=== PATIENT | female | born 1950 | race Caucasian/White ===

== ENCOUNTER → 2016-09-16 | Outpatient (CLI) | payer OTHER ==
[2016-09-16 12:51] LABS: BLOOD UREA NITROGEN 20 mg/dL (7-18)
[2016-09-16 12:56] LABS: ASPARTATE AMINO TRANSFERASE 22 U/L (15-37)
== END | disposition home or self-care (01) ==
LOC: CFH 08:43
PROVIDERS: ATTEND Internal Medicine Cardiovascular Disease
DX: E78.5 Hyperlipidemia, unspecified (principal); I10 Essential (primary) hypertension
CPT/HCPCS: 36415; 80053; 80061

== ENCOUNTER → 2016-09-18 | Outpatient (CLI) | payer OTHER | END | disposition home or self-care (01) | LOC: CFH 08:02 | PROVIDERS: ATTEND Internal Medicine Cardiovascular Disease | DX: I34.1 Nonrheumatic mitral (valve) prolapse (principal) | CPT/HCPCS: 93306 ==

== ENCOUNTER → 2017-01-04 | Outpatient (CLI) | payer OTHER ==
[2017-01-04 07:40] LABS: HEMOGLOBIN 15.1 g/dL (11.7-16.4); WHITE BLOOD COUNT 4.8 x10^3/uL (3.4-10)
[2017-01-04 07:52] LABS: ASPARTATE AMINO TRANSFERASE 22 U/L (15-37); BLOOD UREA NITROGEN 14 mg/dL (7-18)
== END | disposition home or self-care (01) ==
LOC: LAB 07:12
PROVIDERS: ATTEND Internal Medicine Cardiovascular Disease
DX: I10 Essential (primary) hypertension (principal); E78.00 Pure hypercholesterolemia, unspecified
CPT/HCPCS: 36415; 80053; 80061; 82306; 84436; 84443; 84480; 84481; 85025

== ENCOUNTER → 2017-09-23 | Outpatient (CLI) | payer OTHER, MEDICARE ==
[2017-09-23 12:55] LABS: BASOPHILS # (AUTO) 0.02 x10^3/uL (0-0.1); BASOPHILS % (AUTO) 0 % (0-1); EOSINOPHILS # (AUTO) 0.33 x10^3/uL (0-0.4); EOSINOPHILS % (AUTO) 6 % (1-7); LYMPHOCYTES % (AUTO) 35 % (22-44); MD NO; MEAN CORPUSCULAR HGB CONC 34.5 g/dL (32.4-35.8); MEAN CORPUSCULAR VOLUME 92.9 fL (80-100); MEAN PLATELET VOLUME 8.4 fL (7.4-10.4); MONOCYTES # (AUTO) 0.57 x10^3/uL (0.2-0.8); MONOCYTES % (AUTO) 11 % (2-9); NEUTROPHILS % (AUTO) 48 % (42-75); PLATELET COUNT 284 x10^3/uL (130-400); RED BLOOD COUNT 4.55 x10^6/uL (3.82-5.3); RED CELL DISTRIBUTION WIDTH 12.9 % (9.6-15.2)
[2017-09-23 13:19] LABS: ALBUMIN 3.7 g/dL (3.4-5.0); ANION GAP 6 mmol/L (5-15); CALCIUM 9.2 mg/dL (8.5-10.1); CHLORIDE 105 mmol/L (98-107)
[2017-09-23 13:24] LABS: ALANINE AMINOTRANSFERASE 25 U/L (12-78); ALKALINE PHOSPHATASE 77 U/L (45-117); BILIRUBIN,TOTAL 0.7 mg/dL (0.2-1.0); CHOL/HDL RATIO 3.7; CHOLESTEROL, TOTAL 169 mg/dL (140-239); CREATININE 0.93 mg/dL (0.55-1.02); HDL CHOL % 27 % (28-40); HDL CHOLESTEROL (DIRECT) 46 mg/dL (40-60); LDL CHOLESTEROL,CALCULATED 107 mg/dL (54-169); LDL/HDL RATIO 2.3 (0.5-3.0); TOTAL PROTEIN 7.3 g/dL (6.4-8.2); TRIGLYCERIDES 79 mg/dL (50-200); VLDL CHOLESTEROL 16 mg/dL (0-25)
== END | disposition home or self-care (01) ==
LOC: CFH 07:13
PROVIDERS: ATTEND Family Medicine
DX: Z12.31 Encounter for screening mammogram for malignant neoplasm of breast (principal); I10 Essential (primary) hypertension; E78.00 Pure hypercholesterolemia, unspecified
CPT/HCPCS: 36415; 80053; 80061; 85025; 77067

== ENCOUNTER → 2017-10-23 | Outpatient (CLI) | payer OTHER, MEDICARE | END | disposition home or self-care (01) | LOC: CFH 10:28 | PROVIDERS: ATTEND Internal Medicine Cardiovascular Disease | DX: I34.1 Nonrheumatic mitral (valve) prolapse (principal); I10 Essential (primary) hypertension; E11.9 Type 2 diabetes mellitus without complications | CPT/HCPCS: 78452; 93017; 93306; A9502 ==

== ENCOUNTER → 2018-03-20 | Outpatient (CLI) | payer MEDICARE ==
[2018-03-20 12:47] LABS: CHLORIDE 106 mmol/L (98-107)
[2018-03-20 12:53] LABS: ALANINE AMINOTRANSFERASE 26 U/L (12-78); ALBUMIN 3.5 g/dL (3.4-5.0); ALKALINE PHOSPHATASE 87 U/L (45-117); BILIRUBIN,TOTAL 0.4 mg/dL (0.2-1.0); CALCIUM 8.7 mg/dL (8.5-10.1); CHOL/HDL RATIO 3.5; CHOLESTEROL, TOTAL 192 mg/dL (140-239); CREATININE 0.87 mg/dL (0.55-1.02); HDL CHOL % 29 % (28-40); HDL CHOLESTEROL (DIRECT) 55 mg/dL (40-60); LDL CHOLESTEROL,CALCULATED 126 mg/dL (54-169); LDL/HDL RATIO 2.3 (0.5-3.0); TOTAL PROTEIN 7.1 g/dL (6.4-8.2); TRIGLYCERIDES 55 mg/dL (50-200); VLDL CHOLESTEROL 11 mg/dL (0-25)
[2018-03-20 13:20] LABS: ANION GAP 5 mmol/L (5-15)
== END | disposition home or self-care (01) ==
LOC: CFH 07:07
PROVIDERS: ATTEND Internal Medicine Cardiovascular Disease
DX: I10 Essential (primary) hypertension (principal)
CPT/HCPCS: 36415; 80053; 80061

== ENCOUNTER → 2018-03-24 | Outpatient (CLI) | payer MEDICARE ==
[2018-03-24 12:37] LABS: BASOPHILS # (AUTO) 0.04 x10^3/uL (0-0.1); BASOPHILS % (AUTO) 1 % (0-1); EOSINOPHILS # (AUTO) 0.59 x10^3/uL (0-0.4); EOSINOPHILS % (AUTO) 8 % (1-7); LYMPHOCYTES # (AUTO) 3.01 x10^3/uL (1-3.4); LYMPHOCYTES % (AUTO) 39 % (22-44); MD NO; MEAN CORPUSCULAR HEMOGLOBIN 32.1 pg (27.0-34.8); MEAN CORPUSCULAR HGB CONC 33.9 g/dL (32.4-35.8); MEAN CORPUSCULAR VOLUME 94.7 fL (80-100); MEAN PLATELET VOLUME 9.4 fL (7.4-10.4); MONOCYTES # (AUTO) 0.58 x10^3/uL (0.2-0.8); MONOCYTES % (AUTO) 8 % (2-9); NEUTROPHILS # (AUTO) 3.43 x10^3/uL (1.8-6.8); NEUTROPHILS % (AUTO) 45 % (42-75); PLATELET COUNT 304 x10^3/uL (130-400); RED BLOOD COUNT 4.68 x10^6/uL (3.82-5.3); RED CELL DISTRIBUTION WIDTH 13.4 % (9.6-15.2)
== END | disposition home or self-care (01) ==
LOC: CFH 07:29
PROVIDERS: ATTEND Internal Medicine Cardiovascular Disease
DX: I10 Essential (primary) hypertension (principal)
CPT/HCPCS: 36415; 85025

== ENCOUNTER → 2018-03-25 | Outpatient (CLI) | payer MEDICARE | END | disposition home or self-care (01) | LOC: CFH 08:55 | PROVIDERS: ATTEND Internal Medicine Cardiovascular Disease | DX: E78.00 Pure hypercholesterolemia, unspecified (principal); I10 Essential (primary) hypertension; I34.0 Nonrheumatic mitral (valve) insufficiency; I34.1 Nonrheumatic mitral (valve) prolapse | CPT/HCPCS: 71046 ==

== ENCOUNTER 2018-09-28 08:23 | Outpatient (CLI) | payer MEDICARE | END 2018-09-28 23:59 | disposition home or self-care (01) | LOC: CFH 08:23 | PROVIDERS: ATTEND Family Medicine | DX: Z12.31 Encounter for screening mammogram for malignant neoplasm of breast (principal) | CPT/HCPCS: 77063; 77067 ==

== ENCOUNTER 2018-10-19 07:14 | Outpatient (CLI) | payer MEDICARE | END 2018-10-19 23:59 | disposition home or self-care (01) | LOC: CFH 07:14 | PROVIDERS: ATTEND Internal Medicine Cardiovascular Disease | DX: E78.00 Pure hypercholesterolemia, unspecified (principal); I10 Essential (primary) hypertension; I34.0 Nonrheumatic mitral (valve) insufficiency; I34.1 Nonrheumatic mitral (valve) prolapse | CPT/HCPCS: 36415; 80053; 80061; 85025 ==

== ENCOUNTER 2018-10-21 09:44 | Outpatient (CLI) | payer MEDICARE | END 2018-10-21 23:59 | disposition home or self-care (01) | LOC: CFH 09:44 | PROVIDERS: ATTEND Internal Medicine Cardiovascular Disease | DX: I07.1 Rheumatic tricuspid insufficiency (principal); I10 Essential (primary) hypertension | CPT/HCPCS: 93306 ==

== ENCOUNTER → 2019-04-05 | Outpatient (CLI) | payer MEDICARE | END | disposition home or self-care (01) | LOC: CFH 10:37 | PROVIDERS: ATTEND Internal Medicine Cardiovascular Disease | DX: I11.9 Hypertensive heart disease without heart failure (principal); I34.1 Nonrheumatic mitral (valve) prolapse; J81.1 Chronic pulmonary edema; K44.9 Diaphragmatic hernia without obstruction or gangrene | CPT/HCPCS: 75571 ==

== ENCOUNTER → 2019-04-08 | Outpatient (CLI) | payer MEDICARE ==
[2019-04-08 13:09] LABS: ALBUMIN 3.5 g/dL (3.4-5.0); ANION GAP 5 mmol/L (5-15); CALCIUM 8.9 mg/dL (8.5-10.1); CHLORIDE 107 mmol/L (98-107)
[2019-04-08 13:24] LABS: ALANINE AMINOTRANSFERASE 26 U/L (12-78); ALKALINE PHOSPHATASE 84 U/L (45-117); BILIRUBIN,TOTAL 0.5 mg/dL (0.2-1.0); CHOLESTEROL, TOTAL 208 mg/dL (140-239); CREATININE 0.93 mg/dL (0.55-1.02); HDL CHOL % 25 % (28-40); HDL CHOLESTEROL (DIRECT) 52 mg/dL (40-60); LDL CHOLESTEROL,CALCULATED 142 mg/dL (54-169); LDL/HDL RATIO 2.7 (0.5-3.0); TOTAL PROTEIN 7.3 g/dL (6.4-8.2); TRIGLYCERIDES 68 mg/dL (50-200); VLDL CHOLESTEROL 14 mg/dL (0-25)
== END | disposition home or self-care (01) ==
LOC: CFH 07:05
PROVIDERS: ATTEND Internal Medicine Cardiovascular Disease
DX: Z01.818 Encounter for other preprocedural examination (principal); E78.00 Pure hypercholesterolemia, unspecified; I34.0 Nonrheumatic mitral (valve) insufficiency; I34.1 Nonrheumatic mitral (valve) prolapse; I10 Essential (primary) hypertension
CPT/HCPCS: 36415; 80053; 80061

== ENCOUNTER → 2019-05-11 | Outpatient (CLI) | payer MEDICARE | END | disposition home or self-care (01) | LOC: CFH 13:22 | PROVIDERS: ATTEND Nurse Practitioner Family | DX: R05 Cough (principal); Q76.6 Other congenital malformations of ribs | CPT/HCPCS: 71046 ==

== ENCOUNTER → 2019-07-23 | Outpatient (CLI) | payer MEDICARE | END | disposition home or self-care (01) | LOC: CFH 16:03 | PROVIDERS: ATTEND Obstetrics & Gynecology Female Pelvic Medicine and Reconstructive Surgery | DX: R19.09 Other intra-abdominal and pelvic swelling, mass and lump (principal); N95.0 Postmenopausal bleeding | CPT/HCPCS: 76830 ==

== ENCOUNTER 2019-09-22 09:50 | Outpatient (CLI) | payer MEDICARE ==
[2019-11-16] MEDS ORDERED: AMLO-150 PO (10:47)
[2019-11-16] MEDS ORDERED: CARV6.252 PO (10:47)
[2019-11-16] MEDS ORDERED: OMEP40CA42 PO (10:47)
[2019-11-16] MEDS ORDERED: ROSU5TAB PO (10:47)
[2019-11-16] MEDS ORDERED: LISI-167 PO (10:47)
[2019-11-16] MEDS ORDERED: MAGN400T9 PO (11:02)
[2019-11-16] MEDS ORDERED: ASPI-496 PO (11:02)
[2019-11-16] MEDS ORDERED: CALC1CAP8 PO (11:02)
[2019-11-16] MEDS ORDERED: MULT-658 PO (11:02)
[2019-11-16] MEDS ORDERED: CHOL10003 PO (11:02)
== END 2019-09-22 23:59 | disposition home or self-care (01) ==
LOC: CFH 09:50
PROVIDERS: ATTEND Family Medicine
DX: R19.09 Other intra-abdominal and pelvic swelling, mass and lump (principal); N88.8 Other specified noninflammatory disorders of cervix uteri; J32.9 Chronic sinusitis, unspecified
CPT/HCPCS: 70486; 76830

== ENCOUNTER → 2019-10-25 | Outpatient (CLI) | payer MEDICARE | END | disposition home or self-care (01) | LOC: CVU 06:53 | PROVIDERS: ATTEND Internal Medicine Cardiovascular Disease | DX: I34.1 Nonrheumatic mitral (valve) prolapse (principal); I10 Essential (primary) hypertension; E78.5 Hyperlipidemia, unspecified | CPT/HCPCS: 93306; 93356 ==

== ENCOUNTER → 2019-10-29 | Outpatient (CLI) | payer MEDICARE ==
[2019-10-29 12:03] LABS: BASOPHILS # (AUTO) 0.03 x10^3/uL (0-0.1); BASOPHILS % (AUTO) 1 % (0-1); EOSINOPHILS # (AUTO) 0.33 x10^3/uL (0-0.4); EOSINOPHILS % (AUTO) 6 % (1-7); LYMPHOCYTES # (AUTO) 1.47 x10^3/uL (1-3.4); LYMPHOCYTES % (AUTO) 27 % (22-44); MD NO; MEAN CORPUSCULAR HEMOGLOBIN 31.2 pg (27.0-34.8); MEAN CORPUSCULAR HGB CONC 33.7 g/dL (32.4-35.8); MEAN CORPUSCULAR VOLUME 92.6 fL (80-100); MEAN PLATELET VOLUME 8.6 fL (7.4-10.4); MONOCYTES # (AUTO) 0.37 x10^3/uL (0.2-0.8); MONOCYTES % (AUTO) 7 % (2-9); NEUTROPHILS # (AUTO) 3.17 x10^3/uL (1.8-6.8); NEUTROPHILS % (AUTO) 59 % (42-75); PLATELET COUNT 278 x10^3/uL (130-400); RED BLOOD COUNT 4.58 x10^6/uL (3.82-5.3); RED CELL DISTRIBUTION WIDTH 13.2 % (9.6-15.2)
[2019-10-29 12:33] LABS: ALBUMIN 3.7 g/dL (3.4-5.0); ANION GAP 4 mmol/L (5-15); CALCIUM 8.9 mg/dL (8.5-10.1); CHLORIDE 109 mmol/L (98-107)
[2019-10-29 12:38] LABS: ALANINE AMINOTRANSFERASE 45 U/L (12-78); ALKALINE PHOSPHATASE 113 U/L (45-117); BILIRUBIN,TOTAL 0.6 mg/dL (0.2-1.0); CHOL/HDL RATIO 2.7; CHOLESTEROL, TOTAL 149 mg/dL (140-239); CREATININE 0.86 mg/dL (0.55-1.02); HDL CHOL % 38 % (28-40); HDL CHOLESTEROL (DIRECT) 56 mg/dL (40-60); LDL CHOLESTEROL,CALCULATED 80 mg/dL (54-169); LDL/HDL RATIO 1.4 (0.5-3.0); TOTAL PROTEIN 7.3 g/dL (6.4-8.2); TRIGLYCERIDES 63 mg/dL (50-200); VLDL CHOLESTEROL 13 mg/dL (0-25)
== END | disposition home or self-care (01) ==
LOC: CFH 07:26
PROVIDERS: ATTEND Internal Medicine Cardiovascular Disease
DX: E78.00 Pure hypercholesterolemia, unspecified (principal); I10 Essential (primary) hypertension; I49.3 Ventricular premature depolarization; I05.1 Rheumatic mitral insufficiency; I05.8 Other rheumatic mitral valve diseases
CPT/HCPCS: 36415; 80053; 80061; 85025

== ENCOUNTER → 2019-11-16 | Outpatient (CLI) | payer MEDICARE ==
[~2019-11-16] MED LIST: AMLO-150 PO; ASPI-496 PO; CALC1CAP8 PO; CARV6.252 PO; CHOL10003 PO; LISI-167 PO; MAGN400T9 PO; MULT-658 PO; OMEP40CA42 PO; ROSU5TAB PO
[2019-11-16 11:26] LABS: BASOPHILS # (AUTO) 0.02 x10^3/uL (0-0.1); BASOPHILS % (AUTO) 0 % (0-1); EOSINOPHILS # (AUTO) 0.17 x10^3/uL (0-0.4); EOSINOPHILS % (AUTO) 3 % (1-7); LYMPHOCYTES # (AUTO) 1.72 x10^3/uL (1-3.4); LYMPHOCYTES % (AUTO) 27 % (22-44); MD NO; MEAN CORPUSCULAR HEMOGLOBIN 30.8 pg (27.0-34.8); MEAN CORPUSCULAR HGB CONC 32.9 g/dL (32.4-35.8); MEAN CORPUSCULAR VOLUME 93.7 fL (80-100); MEAN PLATELET VOLUME 7.6 fL (7.4-10.4); MONOCYTES # (AUTO) 0.47 x10^3/uL (0.2-0.8); MONOCYTES % (AUTO) 7 % (2-9); NEUTROPHILS # (AUTO) 4.03 x10^3/uL (1.8-6.8); NEUTROPHILS % (AUTO) 63 % (42-75); PLATELET COUNT 298 x10^3/uL (130-400); RED CELL DISTRIBUTION WIDTH 13.3 % (9.6-15.2)
[2019-11-16 11:33] LABS: ALBUMIN 3.9 g/dL (3.4-5.0); ANION GAP 5 mmol/L (5-15); CALCIUM 9.7 mg/dL (8.5-10.1); CHLORIDE 107 mmol/L (98-107)
[2019-11-16 11:37] LABS: ALANINE AMINOTRANSFERASE 48 U/L (12-78); ALKALINE PHOSPHATASE 108 U/L (45-117); BILIRUBIN,TOTAL 0.6 mg/dL (0.2-1.0); CREATININE 0.85 mg/dL (0.55-1.02); TOTAL PROTEIN 7.8 g/dL (6.4-8.2)
[2019-11-16 11:40] LABS: INTERNATIONAL NORMALIZED RATIO 1.04 (0.93-1.1); PROTHROMBIN TIME 10.7 Seconds (9.6-11.5)
== END | disposition home or self-care (01) ==
LOC: STAR 10:08
PROVIDERS: ATTEND Obstetrics & Gynecology
DX: Z01.818 Encounter for other preprocedural examination (principal); N95.0 Postmenopausal bleeding; R93.89 Abnormal findings on diagnostic imaging of other specified body structures; R19.00 Intra-abdominal and pelvic swelling, mass and lump, unspecified site; J92.9 Pleural plaque without asbestos
CPT/HCPCS: 36415; 71046; 80053; 85025; 85610; 85730; 93005

== ENCOUNTER → 2019-11-19 | Outpatient (CLI) | payer MEDICARE | END | disposition home or self-care (01) | LOC: STAR 08:44 | PROVIDERS: ATTEND Anesthesiology | DX: Z01.812 Encounter for preprocedural laboratory examination (principal); Z20.828 Contact with and (suspected) exposure to other viral communicable diseases | CPT/HCPCS: 36415; 87635 ==

== ENCOUNTER 2019-11-23 05:57 | Day surgery (SDC) | payer MEDICARE ==
[~2019-11-23] VITALS: Ht 161.3 cm; Wt 62.0 kg
[2019-11-23] MEDS ORDERED: CHLORHEXIDINE 15 ML UDC MM STA (06:11)
[2019-11-23] MEDS ORDERED: LACTATED RINGERS 1,000 ML IV ONE (06:11)
[2019-11-23] MEDS ORDERED: FENTANYL PF 250 MCG/5ML ONE (06:16)
[2019-11-23] MEDS ORDERED: PROPOFOL 50 ML ONE ×3 (06:19→08:57)
[2019-11-23 06:27] VITALS: BP 121/84
[2019-11-23] MEDS ORDERED: EPINEPHRINE TOPICAL SOLN 1 MG/ML, 30ML ONE (06:46)
[2019-11-23] MEDS ORDERED: OXYMETAZOLINE NASAL SPRAY 0.05%, 15ML ONE (06:46)
[2019-11-23] MEDS ORDERED: BACITRACIN OINT 500U/GM, 15 GM ONE (06:46)
[2019-11-23] MEDS ORDERED: LIDOCAINE 1%-EPI 1:100K, 20ML ONE (06:46)
[2019-11-23] MEDS ORDERED: BACITRACIN ZINC OINT 500U/GM, 0.9 GM ONE (06:46)
[2019-11-23] MEDS ORDERED: SCOPOLAMINE 1MG PATCH TD ONE (06:47)
[2019-11-23] MEDS ORDERED: FLUORESCEIN SODIUM 500 MG/5 ML ONE (06:47)
[2019-11-23] MEDS ORDERED: BACITRACIN 50,000 UNIT ONE (06:47)
[2019-11-23] MEDS ORDERED: SCOPOLAMINE 1MG PATCH TD SCH (07:00)
[2019-11-23] MEDS ORDERED: BACITRACIN 50,000 UNIT IRRIG ONE (07:16)
[2019-11-23] MEDS ORDERED: PHENYLEPHRINE 10 MG/ML ONE (07:16)
[2019-11-23] MEDS ORDERED: LIDOCAINE 1%-EPI 1:100K, 20ML INFIL ONE ×2 (07:16)
[2019-11-23] MEDS ORDERED: METOCLOPRAMIDE 5 MG/ML, 2ML ONE (07:16)
[2019-11-23] MEDS ORDERED: BACITRACIN OINT 500U/GM, 28GM TP ONE (07:16)
[2019-11-23] MEDS ORDERED: FLUORESCEIN SODIUM 500 MG/5 ML IV ONE (07:16)
[2019-11-23] MEDS ORDERED: EPINEPHRINE TOPICAL SOLN 1 MG/ML, 30ML TP ONE (07:16)
[2019-11-23] MEDS ORDERED: ESMOLOL 100 MG/10 ML ONE (07:16)
[2019-11-23] MEDS ORDERED: SUGAMMADEX 200 MG/2 ML IVPush ONE (07:16)
[2019-11-23] MEDS ORDERED: FENTANYL PF 100 MCG/2ML IV PRN (07:30)
[2019-11-23] MEDS ORDERED: MEPERIDINE/PF 25MG/0.5ML IVPush PRN (07:30)
[2019-11-23] MEDS ORDERED: OXYcodone 5 MG/5 ML ORAL.SOL UDC PO PRN (07:30)
[2019-11-23] MEDS ORDERED: hydrALAzine 20 MG/ML, 1ML IV PRN (07:30)
[2019-11-23] MEDS ORDERED: PROMETHAZINE 25 MG/ML, 1ML IVPush PRN (07:30)
[2019-11-23] MEDS ORDERED: LABETALOL 5MG/ML, 20ML IV PRN (07:30)
[2019-11-23] MEDS ORDERED: HYDROmorphone 1 MG/ML, 1ML INJ IVPush PRN (07:30)
[2019-11-23] MEDS ORDERED: ACETAMINOPHEN 325 MG TABLET PO PRN (07:30)
[2019-11-23] MEDS ORDERED: AMPICILLIN/SULBACTAM 3 GM in SODIUM CHLORIDE 0.9% 100 ML IV ONE (08:00)
[2019-11-23] MEDS ORDERED: DEXAMETHASONE 4 MG/ML, 1ML ONE (11:09)
[2019-11-23] MEDS ORDERED: SUCCINYLCHOLINE 20 MG/ML, 10ML ONE (11:09)
[2019-11-23] MEDS ORDERED: ROCURONIUM 10MG/ML,5ML ONE (11:09)
[2019-11-23] MEDS ORDERED: CEFAZOLIN 1,000 MG ONE (11:09)
[2019-11-23] MEDS ORDERED: PROPOFOL 10 MG/ML, 20ML ONE (11:09)
[2019-11-23] MEDS ORDERED: GLYCOPYRROLATE 0.2MG/1ML, 5ML ONE (11:09)
[2019-11-23] MEDS ORDERED: NEOSTIGMINE 1 MG/ML, 10ML ONE (11:09)
[2019-11-23] MEDS ORDERED: ONDANSETRON 2MG/ML, 2ML ONE (11:09)
== END 2019-11-23 12:35 | disposition home or self-care (01) ==
LOC: OUT 05:57
PROVIDERS: ATTEND Otolaryngology
DX: N88.8 Other specified noninflammatory disorders of cervix uteri (principal); N72 Inflammatory disease of cervix uteri; J34.2 Deviated nasal septum; J32.0 Chronic maxillary sinusitis; J34.89 Other specified disorders of nose and nasal sinuses; I10 Essential (primary) hypertension; I34.1 Nonrheumatic mitral (valve) prolapse; I49.3 Ventricular premature depolarization; K21.9 Gastro-esophageal reflux disease without esophagitis; E78.5 Hyperlipidemia, unspecified; Z79.82 Long term (current) use of aspirin; Z79.899 Other long term (current) drug therapy; Z88.2 Allergy status to sulfonamides; Z88.5 Allergy status to narcotic agent; Z85.820 Personal history of malignant melanoma of skin; Z90.49 Acquired absence of other specified parts of digestive tract; Z98.890 Other specified postprocedural states; Z83.3 Family history of diabetes mellitus; Z80.3 Family history of malignant neoplasm of breast; Z80.6 Family history of leukemia
CPT/HCPCS: 30520; 31255; 31267; 57522; 87070; 87075; 87077; 87102; 87107; 87205; 88304; 88305; 88307; J0295; J0330; J0690; J1100; J2370; J2405; J2704; J2710; J2765; J3010; J3490; J7120

== ENCOUNTER 2019-11-30 05:33 | Day surgery (SDC) | payer MEDICARE ==
[~2019-11-30] VITALS: Ht 161.3 cm; Wt 62.4 kg
[2019-11-30] MEDS ORDERED: CHLORHEXIDINE 15 ML UDC MM STA (06:21)
[2019-11-30 06:22] VITALS: BP 117/74
[2019-11-30] MEDS ORDERED: LIDOCAINE 4% TOPICAL SOLUTION 50 ML TP ONE (08:20)
[2019-11-30] MEDS ORDERED: OXYMETAZOLINE NASAL SPRAY 0.05%, 15ML ONE (08:40)
== END 2019-11-30 09:25 | disposition home or self-care (01) ==
LOC: OUT 05:33
PROVIDERS: ATTEND Otolaryngology
DX: J32.0 Chronic maxillary sinusitis (principal); B48.8 Other specified mycoses; I10 Essential (primary) hypertension; E78.5 Hyperlipidemia, unspecified; E78.00 Pure hypercholesterolemia, unspecified; G43.109 Migraine with aura, not intractable, without status migrainosus; Z20.828 Contact with and (suspected) exposure to other viral communicable diseases; Z72.89 Other problems related to lifestyle; Z79.899 Other long term (current) drug therapy; Z88.5 Allergy status to narcotic agent; Z88.8 Allergy status to other drugs, medicaments and biological substances; Z82.49 Family history of ischemic heart disease and other diseases of the circulatory system; Z98.890 Other specified postprocedural states
CPT/HCPCS: 87635

== ENCOUNTER → 2020-10-30 | Outpatient (CLI) | payer MEDICARE ==
[~2020-10-30] MED LIST changes: -OMEP40CA42 PO; +OMEP40CA8 PO
== END | disposition home or self-care (01) ==
LOC: CFH 08:41
PROVIDERS: ATTEND Family Medicine
DX: Z12.31 Encounter for screening mammogram for malignant neoplasm of breast (principal)
CPT/HCPCS: 77063; 77067